=== PATIENT | male | born 1970 | race American Indian/Alaskan Native ===

== ENCOUNTER 2018-03-31 10:58 | Emergency (ER) | payer SELFPAY ==
[2018-03-31] MEDS ORDERED: HALDOL IM ONE (11:38)
[2018-03-31] MEDS ORDERED: ATIVAN IV ONE (11:39)
--- NOTE | 2018-03-31 11:42 | Emergency Department Report ---
ED Alcohol HPI - General Chief Complaint: Alcohol Stated Complaint: POSSIBLE OD Time Seen by Provider: 03/31/18 11:36 Source: family, EMS (ems notes not available at time of chart dictation), RN notes reviewed Mode of arrival: Stretcher Limitations: Altered Mental Status - History of Present Illness Initial Comments: This is a 47-year-old gentleman who is not known to this provider previously. Upon arrival to the ER, the patient is intoxicated and belligerent with staff. The patient does not respond to verbal de-escalation techniques, partial force. He is formerly incapacitated, does not have decision-making capacity. Shortly after arrival to the ER, the patient's sister arrived, Ms. Rochelle Pryor; [phone]. She also indicates that patient's mother is Atiya,; [phone] apparently the patient was just released from long term yesterday. Patient was walking into a liquor store, and then became unresponsive. Uncertain how these conditions manifested. His sister reports that the patient went into the liquor store without her, and that apparently he either passed out or lay down on the floor. It is not certain what exactly happened, but 911 was eventually contacted. Upon arrival to the ER, the patient is awake, intoxicated, moving 4 extremities and protecting his airway. He has an initial [place] Coma Scale of 14. He has a smell of alcohol on his breath. Given that the patient has obvious signs of head trauma, but he does not have decision-making capacity, that he has distracting injury, and that he may have life-threatening injuries, he is placed on a 2013, and medicated immediately with Haldol and Ativan. An emergent CT scan of the brain, cervical spine were requested, and addition to screening laboratory studies. No additional history is available at this time MD Complaint: alcohol intoxication Last Drink: unknown Chronic Alcohol Use: No Previous Visits for Alcohol Intoxication?: No Recent Trauma: Yes Associated Symptoms: other - Related Data Previous Rx's Medication Instructions Recorded Last Taken Type Acetaminophen/Codeine [Tylenol #3] 1 tab PO Q4HR PRN #15 tablet 10/20/13 Unknown Rx Allergies Allergy/AdvReac Type Severity Reaction Status Date / Time No Known Allergies Allergy Unverified 10/19/13 23:04 ED Review of Systems ROS: Stated complaint: POSSIBLE OD Other details as noted in HPI Comment: Unobtainable due to pts medical conditions ED Past Medical Hx - Past Medical History Previous Medical History?: No Additional medical history: Per EMS report patient has no medical history. - Surgical History Past Surgical History?: No - Social History Smoking Status: Unknown if ever smoked Substance Use Type: Alcohol, Other - Medications Home Medications: Home Medications Medication Instructions Recorded Confirmed Last Taken Type Acetaminophen/Codeine [Tylenol #3] 1 tab PO Q4HR PRN #15 tablet 10/20/13 Unknown Rx ED Physical Exam - General Limitations: Altered Mental Status General appearance: appears intoxicated - Head Head exam: Present: normocephalic, other (there is a large occipital hematoma noted) - Eye Eye exam: Present: normal appearance, PERRL, EOMI - ENT ENT exam: Present: normal exam, normal orophraynx, normal external ear exam - Neck Neck exam: Present: normal inspection, full ROM. Absent: tenderness, meningismus - Respiratory Respiratory exam: Present: normal lung sounds bilaterally. Absent: respiratory distress, wheezes, rales, rhonchi, stridor, decreased breath sounds - Cardiovascular Cardiovascular Exam: Present: regular rate, normal rhythm, normal heart sounds. Absent: bradycardia, tachycardia, irregular rhythm - GI/Abdominal GI/Abdominal exam: Present: soft. Absent: distended, tenderness, guarding, rebound, rigid, pulsatile mass - Extremities Exam Extremities exam: Present: normal inspection, full ROM, normal capillary refill , other (2+ pulses noted in the bilateral upper, lower extremities. Compartments soft. No long bony tenderness. The pelvis is stable.). Absent: tenderness, pedal edema, joint swelling, calf tenderness - Back Exam Back exam: Present: normal inspection, full ROM. Absent: tenderness, CVA tenderness (R), paraspinal tenderness, vertebral tenderness - Neurological Exam Neurological exam: Present: altered, other (patient is moving 4 extremities. Patient speaks in full sentences although symptoms structure is nonsensical. No obvious facial droop. Unable to complete detailed neurologic examination secondary to blunt head trauma and alcohol intoxication) - Skin Skin exam: Present: warm, ecchymosis ED Course Vital Signs 03/31/18 03/31/18 03/31/18 12:02 12:16 12:51 Temperature Pulse Rate 95 H 88 Respiratory 25 H 29 H Rate Blood Pressure 156/94 156/94 O2 Sat by Pulse 98 100 99 Oximetry 03/31/18 03/31/18 03/31/18 13:00 13:16 13:18 Temperature 97.5 F L Pulse Rate 90 81 Respiratory 28 H 25 H Rate Blood Pressure 135/89 135/89 O2 Sat by Pulse 98 100 Oximetry - Reevaluation(s) Reevaluation #1: 03/31/18 13:05 Differential diagnosis, including but not limited to: Intracranial injury, cervical spine injury, alcohol intoxication, dehydration, electrolyte derangement, superficial abrasions Assessment and plan: 47-year-old male with blunt head trauma, clinical alcohol intoxication, very impaired at this time, protecting his airway, does not exhibit decision-making capacity, patient is medicated with Haldol, Ativan, and then Geodon for emergent medical workup. As of this time, we know that he has intercranial bleeding with a normal CT scan of the cervical spine. The patient has an emergency medical condition which cannot be definitively managed at this hospital. Patient will therefore be transferred to a trauma center that has trauma surgery, neurosurgery/neuro critical care available for consultation. In the meantime, we will elevate the patient's head of the bed to 30, provide pain medication, and make certain to avoid any provocation that would cause elevated intracranial pressure. Patient protecting his airway at this time. 03/31/18 13:11 04/01/18 15:12 Reevaluation #2: 03/31/18 13:16 The trauma surgeon, Dr. Pendleton has accepted the patient as a transfer. Reevaluation #3: 03/31/18 13:52 Patient found to be hypomagnesemic and hypokalemic as well as hyponatremic. Magnesium and potassium will be repleted, hyponatremia may be secondary to beer podomania; given underlying intracranial hemorrhage, we will withhold IV fluids at this time, deferred to receiving team to further evaluate hyponatremia. Patient protecting airway at this time and in no distress, currently waiting transport. Lab Results 03/31/18 03/31/18 03/31/18 Range/Units 12:52 12:52 12:52 WBC 7.5 (4.5-11.0) K/mm3 RBC 4.13 (3.65-5.03) M/mm3 Hgb 13.8 (11.8-15.2) gm/dl Hct 40.1 (35.5-45.6) % MCV 97 H (84-94) fl MCH 34 H (28-32) pg MCHC 35 H (32-34) % RDW 13.4 (13.2-15.2) % Plt Count 307 (140-440) K/mm3 Sodium 129 L (137-145) mmol/L Potassium 3.3 L (3.6-5.0) mmol/L Chloride 88.7 L (98-107) mmol/L Carbon Dioxide 19 L (22-30) mmol/L Anion Gap 25 mmol/L BUN 13 (9-20) mg/dL Creatinine 1.0 (0.8-1.5) mg/dL Estimated GFR > 60 ml/min BUN/Creatinine Ratio 13 % Glucose 93 (75-100) mg/dL Calcium 8.7 (8.4-10.2) mg/dL Magnesium 1.30 L (1.7-2.3) mg/dL Total Creatine Kinase 896 H (55-170) units/L Salicylates < 0.3 L (2.8-20.0) mg/dL Acetaminophen (10.0-30.0) ug/mL Plasma/Serum Alcohol (0-0.07) % 03/31/18 03/31/18 Range/Units 12:52 12:52 WBC (4.5-11.0) K/mm3 RBC (3.65-5.03) M/mm3 Hgb (11.8-15.2) gm/dl Hct (35.5-45.6) % MCV (84-94) fl MCH (28-32) pg MCHC (32-34) % RDW (13.2-15.2) % Plt Count (140-440) K/mm3 Sodium (137-145) mmol/L Potassium (3.6-5.0) mmol/L Chloride (98-107) mmol/L Carbon Dioxide (22-30) mmol/L Anion Gap mmol/L BUN (9-20) mg/dL Creatinine (0.8-1.5) mg/dL Estimated GFR ml/min BUN/Creatinine Ratio % Glucose (75-100) mg/dL Calcium (8.4-10.2) mg/dL Magnesium (1.7-2.3) mg/dL Total Creatine Kinase (55-170) units/L Salicylates (2.8-20.0) mg/dL Acetaminophen < 5.0 L (10.0-30.0) ug/mL Plasma/Serum Alcohol 0.09 H (0-0.07) % ED Medical Decision Making - Lab Data Result diagrams: 03/31/18 12:52 03/31/18 12:52 Vital Signs 03/31/18 03/31/18 03/31/18 12:02 12:16 12:51 Pulse Rate 95 H 88 Respiratory 25 H 29 H Rate Blood Pressure 156/94 156/94 O2 Sat by Pulse 98 100 99 Oximetry 03/31/18 13:00 Pulse Rate 90 Respiratory 28 H Rate Blood Pressure 135/89 O2 Sat by Pulse 98 Oximetry - EKG Data -: EKG Interpreted by Me EKG shows normal: sinus rhythm Rate: normal - EKG Data When compared to previous EKG there are: previous EKG unavailable 03/31/18 13:18 Sinus, 76 bpm, normal axis, QTC prolonged, T-wave inversions in the lateral leads, borderline atrial enlargement, abnormal EKG, not having chest pain, this is not an ST elevation myocardial infarction - Radiology Data Radiology results: report reviewed, image reviewed Noncontrast CT scan of the brain is negative for acute disease. CT scan of the brain demonstrates social subarachnoid hemorrhage, and hemorrhagic contusion. Critical Care Time: Yes Critical care time in (mins) excluding proc time.: 35 Critical care attestation.: If time is entered above; I have spent that time in minutes in the direct care of this critically ill patient, excluding procedure time. Critical Care Time: Critical care time includes multiple bedside evaluations, interpretation of laboratory studies, radiology studies, discussion with consulting services and transfer services, and time spent managing a patient with a critical intracranial injury that is potentially life threatening and neurologically devastating. This does not include procedure time. ED Disposition Clinical Impression: Traumatic intracranial hemorrhage, Alcohol intoxication Disposition: [id number] GEN HOSP IP Is pt being admited?: No Does the pt Need Aspirin: No Condition: Critical Referrals: PRIMARY CARE, [Primary Care Provider] - 3-5 Days
[2018-03-31] MEDS ORDERED: GEODON IM ONE (12:37)
[2018-03-31] MEDS ORDERED: WATER FOR INJ (PF) ONE (12:44)
--- NOTE | 2018-03-31 12:53 | Cat Scan Report ---
FINAL REPORT EXAM: CT CERVICAL SPINE WO CON HISTORY: ams etoh head trauma TECHNIQUE: CT of the cervical spine was performed without intravenous contrast. Reconstructions were included in the coronal and sagittal planes. PRIORS: None. FINDINGS: No cervical spine fracture or subluxation. The prevertebral soft tissues are normal. Multilevel degenerative changes are seen with multilevel mild neural foraminal narrowing. No spinal stenosis. IMPRESSION: No acute cervical spine abnormality.
--- NOTE | 2018-03-31 12:58 | Cat Scan Report ---
FINAL REPORT EXAM: CT HEAD/BRAIN WO CON HISTORY: ams etoh head trauma TECHNIQUE: CT of the head was performed without intravenous contrast. PRIORS: None. FINDINGS: The ventricles are normal in shape and position. The ventricles are nondilated. There is a focal parenchymal hemorrhage in the left anterior/inferior frontal lobe. This hemorrhage measures 1.4 x 0.9 centimeters. Scattered sulcal subarachnoid hemorrhage is seen in the right frontal region. No mass effect or midline shift. The basilar cisterns are patent. There is diffuse cerebral volume loss. Mild areas of low-attenuation are seen in the periventricular and subcortical white matter. Mucosal thickening of the right maxillary sinus is likely congestive or inflammatory. Nonspecific right frontal scalp lesion is seen. The calvarium is intact. The orbits are intact. The mastoid air cells are clear. IMPRESSION: 1. Parenchymal contusion in the left anterior frontal lobe. Scattered sulcal subarachnoid hemorrhage in the right frontal lobe. 2. Diffuse cerebral volume loss. Diffuse white matter changes are nonspecific in a patient this age although may be related to chronic microvascular ischemic disease versus a demyelinating or inflammatory process. Findings were discussed with Dr. Bill at 9:54 a.m. PST on 03/31/2018.
[2018-03-31 13:04] VITALS: BP 135/89
[2018-03-31] MEDS ORDERED: SUBLIMAZE IV ONE (13:04)
[2018-03-31 13:16] LABS: Hematocrit 40.1 % (35.5-45.6); Hemoglobin 13.8 gm/dl (11.8-15.2); Mean Corpuscular HGB Conc 35 % (32-34); Mean Corpuscular Hemoglobin 34 pg (28-32); Mean Corpuscular Volume 97 fl (84-94); Platelet Count 307 K/mm3 (140-440); Red Blood Count 4.13 M/mm3 (3.65-5.03); Red Cell Distribution Width 13.4 % (13.2-15.2)
[2018-03-31 13:36] LABS: BUN/Creatinine Ratio 13; Blood Urea Nitrogen 13 mg/dL (9-20); Calcium 8.7 mg/dL (8.4-10.2); Hemolysis Index 4
[2018-03-31] MEDS ORDERED: KCL 10MEQ/100ML 10 MEQ/100 ML BAG IV SCH (14:00)
[2018-03-31] MEDS ORDERED: MAGNESIUM SULFATE 2GM/50ML 2 GM/50 ML BAG IV ONE (14:00)
== END 2018-03-31 14:39 | disposition short-term general hospital (02) ==
LOC: ED 10:58
DX: S06.309A Unspecified focal traumatic brain injury with loss of consciousness of unspecified duration, initial encounter (principal); X58.XXXA Exposure to other specified factors, initial encounter; Y93.89 Activity, other specified; Y99.8 Other external cause status; Y92.89 Other specified places as the place of occurrence of the external cause
CPT/HCPCS: 36415; 70450; 72125; 80048; 82550; 83735; 85027; 93005; 93010; 96372; 96374; 96375; 99291; G0480; J1630; J2060; J3010; J3480; J3486; 80320; J3475